=== PATIENT | female | born 2000 | race Two or more races ===

== ENCOUNTER 2018-09-10 06:41 | Emergency (ER) | payer BC ==
[~2018-09-10] VITALS: Ht 165.1 cm; Wt 111.2 kg
--- NOTE | 2018-09-10 07:03 | NUR ---
PT AMBULATORY TO ROOM 14 W/ C/O MID LOWER PELVIC ABD PAIN. PT STATES THIS NORMALLY HAPPENS WHEN SHE TAKES CONTROL AND STATES SHE TOOK PLAN B THEN STARTED HAVING THIS PAIN. PT STATES FOUL ODOR IN URINE. DENIES DISCHARGE. PT ALSO WANTS TO BE SEEN FOR WHAT SHE THINKS IS A HERNIA. LMP 08/13/18. PT RESTING ON GURNEY. NADN. WARM BLANKET PROVIDED.
[2018-09-10] MEDS ORDERED: HYDROcodone/APAP 5/325 TABLET ONE (07:27)
[2018-09-10] MEDS ORDERED: HYDROcodone/APAP 5/325 TABLET PO ONE (07:30)
--- NOTE | 2018-09-10 07:32 | NUR ---
PT REFUSING NARCOTIC PAIN MEDICATION. ERP NOTIFIED OF PT DESIRE FOR NON NARCOTIC PAIN MEDICATION.
[2018-09-10 07:49] LABS: MEAN CORPUSCULAR HEMOGLOBIN 30.3 pg (27.0-34.8); MEAN CORPUSCULAR VOLUME 91.7 fL (80-100); MEAN PLATELET VOLUME 9.1 fL (7.4-10.4); PLATELET COUNT 230 x10^3/uL (130-400); RED BLOOD COUNT 4.17 x10^6/uL (3.82-5.3); RED CELL DISTRIBUTION WIDTH 15.3 % (9.6-15.2)
[2018-09-10 07:51] LABS: CULTURE INDICATED? YES; MICROSCOPIC AUTO
[2018-09-10 07:54] LABS: ALBUMIN 4.1 g/dL (3.4-5.0); ANION GAP 8 mmol/L (5-15); CALCIUM 9.2 mg/dL (8.5-10.1); CHLORIDE 106 mmol/L (98-107); CREATININE 0.74 mg/dL (0.55-1.02)
--- NOTE | 2018-09-10 08:00 | NUR ---
PT STATES SHE WANTS TO GET TESTED FOR ALL STD'S. ERP NOTIFIED.
[2018-09-10 08:19] LABS: MD YES
[2018-09-10 08:21] LABS: <PLATELET ESTIMATE> ADEQUATE; <PLT MORPHOLOGY> NORMAL PLT MORPH; <RBC MORPHOLOGY> NORMAL; EOS#(MANUAL) 0.08 x10^3/uL (0.0-0.8); EOS% (MANUAL) 1 % (1-7); LYMPH#(MANUAL) 2.77 x10^3/uL (1-6.1); LYMPHS% (MANUAL) 36 % (22-44); MONOS#(MANUAL) 0.15 x10^3/uL (0.3-2.7); MONOS% (MANUAL) 2 % (2-9); SEGS% (MANUAL) 61 % (42-75)
--- NOTE | 2018-09-10 08:37 | NUR ---
PT RESTING ON GURGIUSEPPE. SARAH. VSS. STATES PAIN ONLY W/ URINATION.
[2018-09-10] MEDS ORDERED: AZITHROMYCIN 500 MG TABLET PO ONE (09:30)
[2018-09-10] MEDS ORDERED: CEFTRIAXONE 250 MG IM ONE (09:30)
[2018-09-10] MEDS ORDERED: AZITHROMYCIN 250 MG TABLET ONE (09:46)
[2018-09-10] MEDS ORDERED: CEFTRIAXONE 250 MG ONE (09:46)
[2018-09-10 09:48] VITALS: BP 159/79
--- NOTE | 2018-09-10 09:48 | NUR ---
PT RESTING ON GURNEY. NADN. VEGAS.
[2018-09-10 10:04] LABS: CLUE CELLS NONE SEEN (NONE SEEN)
[2018-09-10 10:05] LABS: WET PREP WBCS MODERATE (FEW)
== END 2018-09-10 10:43 | disposition home or self-care (01) ==
LOC: ED 10:07
DX: K64.4 Residual hemorrhoidal skin tags (principal); R10.30 Lower abdominal pain, unspecified; R30.0 Dysuria; Z88.2 Allergy status to sulfonamides
CPT/HCPCS: 36415; 80048; 80074; 81001; 82040; 84702; 85025; 87077; 87086; 87210; 87491; 87591; 87806; 87808; 96372; 99283; J0696; G0475